=== PATIENT | female | born 1980 | race Caucasian/White ===

== ENCOUNTER 2016-06-21 09:01 | Day surgery (SDC) | payer OTHER ==
[2016-06-14 15:02] VITALS: BMI 19.5
[2016-06-21] MEDS ORDERED: PROPOFOL 20 ML ONE (11:09)
[2016-06-21] MEDS ORDERED: MIDAZOLAM HCL 2 MG/2 ML SINGLE DOSE VIAL ONE (11:09)
[2016-06-21] MEDS ORDERED: LIDOCAINE HCL/PF 2% SDV 5ML VIAL ONE (11:33)
[2016-06-21] MEDS ORDERED: ceFAZolin SODIUM 1 GM VIAL ONE (11:33)
[2016-06-21] MEDS ORDERED: DEXAMETHASONE SOD PHOSPHATE 4 MG/1 ML VIAL ONE (11:33)
[2016-06-21] MEDS ORDERED: ONDANSETRON 4 MG/2 ML VIAL ONE (11:33)
[2016-06-21] MEDS ORDERED: BUPIVACAINE HCL/PF 0.25% (2.5MG/ML) 10 ML VIAL IJ ONE (11:45)
[2016-06-21] MEDS ORDERED: ONDANSETRON 4 MG/2 ML VIAL IVPUSH ONE (12:30)
[2016-06-21] MEDS ORDERED: LACTATED RINGERS SOLUTION 1,000 ML IV SCH (12:30)
[2016-06-21] MEDS ORDERED: ONDANSETRON 4 MG/2 ML VIAL IVPUSH PRN (12:53)
[2016-06-21] MEDS ORDERED: PROMETHAZINE HCL 25 MG/1 ML VIAL IVPUSH PRN (12:54)
[2016-06-21] MEDS ORDERED: ACETAMINOPHEN 325 MG TABLET (FP) PO ONE (14:14)
[2016-06-21 14:57] VITALS: BP 123/72; PULSE 64; TEMP 98
--- NOTE | 2016-06-21 14:57 | OP ---
DATE OF OPERATION: 06/21/2016 PREOPERATIVE DIAGNOSIS: Left knee medial meniscal tear. POSTOPERATIVE DIAGNOSIS: Left knee medial meniscal tear. PROCEDURE: Left knee arthroscopy with partial medial meniscectomy. SURGEON: Naman Ames MD [employer] DIRECTOR: Tyra Byrd physician credit assistant ANESTHESIA TYPE: General. TOURNIQUET TIME: 21 minutes POSTOPERATIVE CONDITION: Stable. COMPLICATIONS: None. INDICATIONS: This is a pleasant woman who has been suffering from medial knee pain. MRI demonstrated medial meniscal tearing. Treatment options including nonoperative versus operative management were discussed. Operative risks were discussed in detail including bleeding, infection, neurovascular injury, need for further surgery, postoperative pain and stiffness, progression of osteoarthritis. We discussed medical risks such as heart attack, stroke, DVT, PE, and . The patient voiced understanding and elected to proceed. DESCRIPTION OF PROCEDURE: The patient was brought to the operating room where general anesthesia was administered. The left lower extremity was then prepped and draped in the usual sterile fashion. A preoperative dose of antibiotics was given, and the usual timeout procedure was performed. At this point, the portals were marked out on the skin. They were injected subcutaneously with 0.25% Marcaine. An 11-blade was now used to establish the lateral portal. Arthroscope was now passed into the knee. Examination of the patellofemoral joint was limited as a fold of synovium was blocking view of the patella; however, the trochlea appeared unremarkable. The arthroscope was now passed down to the notch, where the ACL was visualized to be intact. The arthroscope was now passed medially. Here, a medial portal was established under spinal needle localization. The medial side of the joint was examined, demonstrating some fissuring of the cartilage on the femoral side. There was also some fraying at the lateral border of the medial femoral condyle with a shag carpet appearance. The tibial side was unremarkable. The meniscus demonstrated a complex tear all throughout the body and posterior horn. This was poor quality tissue and was not a candidate for repair. The 4.2-mm shaver along with the meniscal biter were now used to trim down the meniscus to a stable base. The lateral compartment was now inspected, demonstrating no articular cartilage lesions and no meniscal lesions. The meniscus was probed and found to be stable. The arthroscope was now passed back into the patellofemoral joint. Here some of the synovium was debrided to allow visualization, and no patellar lesions were noted, though the patella did sit in a lateral station. At this point the excess fluid was withdrawn from the knee. The portals were sutured using 3-0 nylon. Sterile dressings were placed. The patient was extubated and transferred to recovery room in stable condition. NAMAN AMES M.D. JONATHAN/[id number]
== END 2016-06-21 14:45 | disposition home or self-care (01) ==
LOC: FASU 09:01
PROVIDERS: ATTEND Orthopaedic Surgery Sports Medicine
PROC: 0SBD4ZZ Excision of Left Knee Joint, Percutaneous Endoscopic Approach (ICD-10-PCS; principal; 2016-06-21 11:45)
DX: S83.242A Other tear of medial meniscus, current injury, left knee, initial encounter (principal); X58.XXXA Exposure to other specified factors, initial encounter; Y93.9 Activity, unspecified; Y92.9 Unspecified place or not applicable
CPT/HCPCS: 84703; 94760; 97116-GP